=== PATIENT | female | born 1990 | race Two or more races ===

== ENCOUNTER 2018-10-30 10:23 | Emergency (ER) | payer OTHER ==
[~2018-10-30] VITALS: Ht 157.5 cm; Wt 49.4 kg
[~2018-10-30 10:23] MED LIST: AMOX1TAB12 PO; BACTROBAN OINT22 GM TP
[2018-10-30] MEDS ORDERED: AMOX-CLAV 875-1 EACH PO (13:25)
[2018-10-30] MEDS ORDERED: INTESTINEX680 M1 PO (13:25)
== END 2018-10-30 13:32 | disposition home or self-care (01) ==
LOC: ER 10:23
DX: S00.87XA Other superficial bite of other part of head, initial encounter (principal); W54.0XXA Bitten by dog, initial encounter; Y93.89 Activity, other specified; Y92.89 Other specified places as the place of occurrence of the external cause; Y99.8 Other external cause status